=== PATIENT | female | born 1970 | race Caucasian/White ===

== ENCOUNTER → 2016-10-12 | Outpatient (REF) | payer OTHER ==
[2016-10-12 19:40] LABS: RETIC HEMOGLOBIN CONTENT CHr 25.7 PG (24-36); RETICULOCYTE ABSOLUTE ADVIA212 79 x10(9)/L (17-77)
[2016-10-12 19:53] LABS: FERRITIN 6 NG/ML (8-252); PERCENT SATURATION 4.2 % (13.2-37.4); TOTAL IRON BINDING CAPACITY 472 UG/DL (250-450); TOTAL PROTEIN 7.9 GM/DL (6.4-8.2)
[2016-10-12 20:11] LABS: VITAMIN B12 LEVEL 644 PG/ML (247-911)
[2016-10-12 21:27] LABS: ERYTHROCYTE SEDIMENTATION RATE 49 mm/hr (0-20)
[2016-10-12 22:36] LABS: REASON FOR REVIEW COMPREHENSIVE REVIEW
[2016-10-14 11:36] LABS: ALBUMIN % 53.2 % (55.8-66.1); GAMMA GLOBULIN % 20.2 % (11.1-18.8)
[2016-10-15 00:06] LABS: ENDOMYSIAL ABY IgA Negative (Negative); ERYTHROPOIETIN 78.1 mIU/mL (2.6-18.5)
== END ==
LOC: M LAB REF 17:07
PROVIDERS: ATTEND Internal Medicine Medical Oncology
DX: D64.9 Anemia, unspecified (principal)

== ENCOUNTER → 2017-01-14 | Outpatient (REF) | payer OTHER | LOC: M LAB REF 12:49 | PROVIDERS: ATTEND Internal Medicine Medical Oncology | DX: D50.9 Iron deficiency anemia, unspecified (principal) ==

== ENCOUNTER → 2017-06-30 | Outpatient (REF) | payer OTHER ==
[2017-06-30 14:00] LABS: FERRITIN 13 NG/ML (8-252); IRON (FE) 65 UG/DL (50-170); PERCENT SATURATION 16.6 % (13.2-45.0); TOTAL IRON BINDING CAPACITY 392 UG/DL (250-450)
== END ==
LOC: M LAB REF 13:29
DX: D50.9 Iron deficiency anemia, unspecified (principal)

== ENCOUNTER → 2017-09-28 | Outpatient (REF) | payer OTHER ==
[2017-09-28 14:15] LABS: FERRITIN 11 NG/ML (8-252); IRON (FE) 39 UG/DL (50-170); PERCENT SATURATION 8.9 % (13.2-45.0); TOTAL IRON BINDING CAPACITY 440 UG/DL (250-450)
== END ==
LOC: M LAB REF 13:33
DX: Z00.00 Encounter for general adult medical examination without abnormal findings (principal)

== ENCOUNTER → 2017-11-28 | Outpatient (REF) | payer OTHER ==
[2017-11-28 14:33] LABS: FERRITIN 104 NG/ML (8-252); IRON (FE) 73 UG/DL (50-170); TOTAL IRON BINDING CAPACITY 332 UG/DL (250-450)
[2017-11-28 15:55] LABS: TOTAL 25(OH) VITAMIN D 15.1 NG/ML (30.0-100.0)
== END ==
LOC: M LAB REF 13:51
DX: D50.9 Iron deficiency anemia, unspecified (principal); N92.1 Excessive and frequent menstruation with irregular cycle

== ENCOUNTER → 2020-07-16 | Outpatient (CLI) | payer SELFPAY ==
[~2020-07-16] MED LIST: D 101000 PO; JENC0.35 PO
[2020-07-16 13:35] LABS: BASO % 0.3 % (0.0-1.0); EOS # 0.1 10^3/uL (0.0-0.5); EOS % 1.1 % (0.0-3.0); HEMATOCRIT 38.6 % (36.0-47.0); HEMOGLOBIN 12.7 g/dl (12.0-15.5); LYMPH # 2.4 10^3/uL (1.5-5.0); LYMPH % 26.9 % (24.0-44.0); MEAN CORPUSCULAR HEMOGLOBIN 26.7 pg (27.0-33.0); MEAN CORPUSCULAR HGB CONC 32.9 g/dl (32.0-36.5); MEAN CORPUSCULAR VOLUME 81.3 fl (80.0-96.0); MONO # 0.7 10^3/uL (0.0-0.8); MONO % 7.4 % (2.0-8.0); NEUTROPHILS # 5.8 10^3/uL (1.5-8.5); PLATELET COUNT, AUTOMATED 267 10^3/uL (150-450); RED BLOOD COUNT 4.75 10^6/uL (4.00-5.40); WHITE BLOOD COUNT 9.1 10^3/uL (4.0-10.0)
[2020-07-16 18:11] LABS: ALBUMIN 3.7 GM/DL (3.2-5.2); ALT/SGPT 39 U/L (12-78); BILIRUBIN,TOTAL 0.6 MG/DL (0.2-1.0); BLOOD UREA NITROGEN 10 MG/DL (7-18); CALCIUM LEVEL 9.7 MG/DL (8.5-10.1); CARBON DIOXIDE LEVEL 23 MEQ/L (21-32); CHLORIDE LEVEL 105 MEQ/L (98-107); CREATININE FOR GFR 0.76 MG/DL (0.55-1.30); GLOMERULAR FILTRATION RATE > 60.0 (>58); GLUCOSE, FASTING 87 MG/DL (70-100); IRON (FE) 109 UG/DL (50-170); POTASSIUM SERUM 4.2 MEQ/L (3.5-5.1); SODIUM LEVEL 136 MEQ/L (136-145); TOTAL PROTEIN 7.6 GM/DL (6.4-8.2)
== END ==
LOC: M LAB 12:19
PROVIDERS: ATTEND Specialist
DX: D50.9 Iron deficiency anemia, unspecified (principal)